=== PATIENT | female | born 1990 | race African-American/Black ===

== ENCOUNTER 2022-05-13 01:44 | Emergency (ER) | payer MEDICARE, MEDICAID, SELFPAY ==
[2022-05-13 01:52] VITALS: BP 122/75; PULSE 81; RESP 20; TEMP 36.4; O2SAT 100
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
[2022-05-13 03:35] VITALS: BP 122/75; PULSE 73; RESP 18; O2SAT 100
== END 2022-05-13 03:24 | disposition home or self-care (01) ==
PROVIDERS: Emergency Provider Emergency Medicine
DX: S61.302A Unspecified open wound of right middle finger with damage to nail, initial encounter (principal); X58.XXXA Exposure to other specified factors, initial encounter
CPT/HCPCS: 11730; 99282

== ENCOUNTER 2022-11-25 12:16 | Emergency (ER) | payer MEDICARE, MEDICAID, SELFPAY ==
[2022-11-25 13:03] VITALS: BP 132/76; PULSE 87; RESP 14; TEMP 36.3; O2SAT 98
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
[2022-11-25 16:07] VITALS: BP 128/74; PULSE 74; RESP 16; O2SAT 100
== END 2022-11-25 16:08 | disposition home or self-care (01) ==
PROVIDERS: Emergency Provider Family Medicine
DX: S61.212A Laceration without foreign body of right middle finger without damage to nail, initial encounter (principal); W25.XXXA Contact with sharp glass, initial encounter
CPT/HCPCS: 12002; 99283